=== PATIENT | female | born 1955 | race Caucasian/White ===

== ENCOUNTER 2017-12-21 03:20 | Observation (INO) | payer OTHER ==
[~2017-12-21] VITALS: Ht 167.6 cm; Wt 68.0 kg
[2017-12-21] MEDS ORDERED: normal saline 1000ML IV soln IVB ONE ×2 (03:25→04:25)
[2017-12-21] MEDS ORDERED: POTA99TA21 PO (03:55)
[2017-12-21] MEDS ORDERED: [UNRECOGNIZED DRUG - REMARK] (03:55)
[2017-12-21 04:01] LABS: BASOPHILS % (AUTO) 0 % (0-1); EOSINOPHILS # (AUTO) 0.1 X10'3 (0-0.9); EOSINOPHILS % (AUTO) 1.3 % (0-6); HEMATOCRIT 35.3 % (35.0-45.0); LYMPHOCYTES # (AUTO) 0.3 X10'3 (1.1-4.8); LYMPHOCYTES % (AUTO) 2.7 % (21-51); MEAN CORPUSCULAR HEMOGLOBIN 30.4 PG (27.0-31.0); MEAN CORPUSCULAR VOLUME 89.4 FL (78-98); MEAN PLATELET VOLUME 8.1 FL (7.4-10.4); MONOCYTES # (AUTO) 0.1 X10'3 (0-0.9); MONOCYTES % (AUTO) 0.6 % (2-12); NEUTROPHILS # (AUTO) 9.2 X10'3 (1.8-7.7); NEUTROPHILS % (AUTO) 95.4 % (42-75); PLATELET COUNT 184 X10'3 (140-440); RED BLOOD COUNT 3.95 X10'6 (4.20-5.60); RED CELL DISTRIBUTION WIDTH 14.1 % (11.5-14.5); WHITE BLOOD COUNT 9.6 X10'3 (4.5-11.0)
[2017-12-21] MEDS ORDERED: [UNRECOGNIZED DRUG - OTHER] (04:01)
[2017-12-21 04:15] LABS: CLARITY,URINE CLEAR (Clear); COLOR,URINE YELLOW (Yellow); GLUCOSE, URINE NEGATIVE (Neg); KETONES,URINE NEGATIVE (Neg); LEUKOCYTE ESTERASE ,URINE TRACE (Neg); NITRITES, URINE NEGATIVE (Neg); OCCULT BLOOD,URINE NEGATIVE (Neg); PROTEIN,URINE NEGATIVE (Neg); UA COLLECTION TYPE CLN CATCH MIDSTREAM; UROBILINOGEN,URINE 0.2 E.U/dL (0.2-1.0)
[2017-12-21 04:21] LABS: WBC,URINE 0-4 /HPF (0-4)
[2017-12-21 04:22] LABS: BACTERIA,URINE 1+ /HPF (Neg); MUCUS STRANDS NONE SEEN /LPF (Neg); RBC,URINE NONE SEEN /HPF (0-2); SQUAMOUS EPITHELIAL CELL,UR FEW /LPF (FEW)
[2017-12-21 04:30] LABS: ALANINE AMINOTRANSFERASE 17 U/L (12-78); ALBUMIN 3.1 G/DL (3.4-5.0); ALBUMIN/GLOBULIN RATIO 1.1 (1.1-1.5); ALKALINE PHOSPHATASE 129 IU/L (46-116); ASPARTATE AMINO TRANSFERASE 13 U/L (10-37); BILIRUBIN,TOTAL 0.4 MG/DL (0.1-1.0); BLOOD UREA NITROGEN 18 MG/DL (7-18); BUN/CREATININE RATIO 11.7 (6.6-38.0); CALCIUM 8.8 MG/DL (8.5-10.1); CHLORIDE 110 MMOL/L (99-107); CREATININE 1.54 MG/DL (0.40-0.90); GLUCOSE 157 MG/DL (70-104); LIPASE 106 U/L (73-393); POTASSIUM 3.6 MMOL/L (3.5-5.1); TOTAL CARBON DIOXIDE 21.1 MMOL/L (24-32); eGFR 34 ML/MIN
[2017-12-21 04:31] LABS: ANION GAP 13 (8-16); SODIUM 144 MMOL/L (135-145)
[2017-12-21] MEDS ORDERED: LIDOcaine Viscous 15ml cup PO ONE (04:35)
[2017-12-21] MEDS: potassium 10mEq/100ml NS w/LIDOcaine (10mg/bag) IV SCH ×2 (04:42→08:44)
[2017-12-21] MEDS ORDERED: LORazepam 2 mg/ml vial IV PRN (05:15)
[2017-12-21] MEDS ORDERED: acetaminophen 325mg tablet PO PRN (05:15)
[2017-12-21] MEDS ORDERED: ondansetron/PF 4mg/2ml inj IV PRN (05:15)
[2017-12-21] MEDS ORDERED: magnesium hydroxide 30ml (MOM) UD suspension PO PRN (05:15)
[2017-12-21] MEDS ORDERED: mag hydrox/Alum hydrox/simeth 30ml oral suspension PO PRN (05:15)
[2017-12-21 08:00] VITALS: BP 144/87
[2017-12-21] MEDS ORDERED: LORA0.5T PO (08:17)
[2017-12-21] MEDS: potassium Cl 20mEq in NS 1,000 ML IV SCH ×2 (10:41→15:11)
[2017-12-21 11:00] VITALS: BP 131/78
[2017-12-21 14:00] LABS: BASOPHILS % (AUTO) 0 % (0-1); EOSINOPHILS % (AUTO) 0 % (0-6); HEMATOCRIT 33.7 % (35.0-45.0); HEMOGLOBIN 11.4 g/dl (12.0-16.0); LYMPHOCYTES # (AUTO) 0.4 X10'3 (1.1-4.8); LYMPHOCYTES % (AUTO) 4.6 % (21-51); MEAN CORPUSCULAR HEMOGLOBIN 30.3 PG (27.0-31.0); MEAN CORPUSCULAR HGB CONC 33.8 % (33.0-36.5); MEAN CORPUSCULAR VOLUME 89.5 FL (78-98); MEAN PLATELET VOLUME 8.8 FL (7.4-10.4); MONOCYTES # (AUTO) 0.1 X10'3 (0-0.9); MONOCYTES % (AUTO) 0.7 % (2-12); NEUTROPHILS % (AUTO) 94.7 % (42-75); PLATELET COUNT 173 X10'3 (140-440); RED BLOOD COUNT 3.76 X10'6 (4.20-5.60); RED CELL DISTRIBUTION WIDTH 14.7 % (11.5-14.5); WHITE BLOOD COUNT 8.4 X10'3 (4.5-11.0)
[2017-12-21] MEDS ORDERED: CIPR-259 PO (15:23)
== END 2017-12-21 17:06 | disposition home or self-care (01) ==
LOC: ER 03:21 → SUR 3N 05:11 → CMPBEDREQ 06:15
PROVIDERS: ADMIT Internal Medicine; ATTEND Internal Medicine
DX: R10.9 Unspecified abdominal pain (principal); R11.2 Nausea with vomiting, unspecified; E21.3 Hyperparathyroidism, unspecified; K50.90 Crohn's disease, unspecified, without complications; N20.0 Calculus of kidney; K56.609 Unspecified intestinal obstruction, unspecified as to partial versus complete obstruction
CPT/HCPCS: 36415; 80053; 81001; 83690; 85025; 87070; 87077; 87088; 87186; 96360; 96361; 99285; G0378; J3480; J7030